=== PATIENT | female | born 1980 | race Two or more races ===

== ENCOUNTER 2019-10-14 03:26 | Inpatient (IN) | payer OTHER ==
[~2019-10-14] VITALS: Ht 154.9 cm; Wt 71.7 kg
[2019-10-14] MEDS ORDERED: RINGERS SOLUTION,LACTATED 1,000 ML IV PRN (04:33)
[2019-10-14] MEDS ORDERED: OXYTOCIN 30 UNITS/LACT RINGERS 500 ML IV ONE (04:33)
[2019-10-14] MEDS ORDERED: CITRIC ACID/SODIUM CITRATE 30 ML SOLUTION UDCUP PO PRN (04:45)
[2019-10-14] MEDS ORDERED: METOCLOPRAMIDE HCL 5 MG/ML 2 ML VIAL IVP PRN (04:45)
[2019-10-14 05:05] LABS: BASOPHILS % (AUTO) 0.8 % (0.0-2.0); EOSINOPHILS % (AUTO) 0.8 % (1.0-6.0); HEMATOCRIT 41.6 % (36-46); HEMOGLOBIN 13.9 g/dL (12.0-16.0); LYMPHOCYTES # (AUTO) 1.6 K/uL (1.0-4.8); LYMPHOCYTES % (AUTO) 21.9 % (22.0-44.0); MEAN CORPUSCULAR HGB CONC 33.4 G/dL (31.0-37.0); MEAN CORPUSCULAR VOLUME 90 fL (80-100); MONOCYTES # (AUTO) 0.4 K/uL (0.1-1.0); MONOCYTES % (AUTO) 4.8 % (2.0-9.0); NEUTROPHILS # (AUTO) 5.4 K/uL (1.8-7.7); NEUTROPHILS % (AUTO) 71.7 % (40.0-70.0); PLATELET COUNT (AUTO)-OB 143 K/uL (150-450); RED BLOOD CELL COUNT(AUTO) 4.63 MIL/uL (4.00-5.20); RED CELL DISTRIBUTION WIDTH 14.1 % (11.5-14.5)
[2019-10-14] MEDS: RINGERS SOLUTION,LACTATED 1,000 ML IV SCH ×2 (05:37→12:40)
[2019-10-14] MEDS: OXYTOCIN 30 UNITS/LACT RINGERS 500 ML IV PRN (05:39)
[2019-10-14 05:55] LABS: PLATELET MORPHOLOGY COMMENT GIANT PLTS PRESENT
[2019-10-14 06:01] VITALS: BP 120/64
[2019-10-14] MEDS ORDERED: PNV11TAB PO (06:06)
[2019-10-14] MEDS ORDERED: OXYGEN THERAPY IH SCH (08:00)
[2019-10-14] MEDS: CLINDAMYCIN 900 MG/D5% WATER 50 ML IV SCH (18:03)
[2019-10-14] MEDS ORDERED: LIDOCAINE/PF 2% 5 ML VIAL ONE (18:34)
[2019-10-14] MEDS ORDERED: ROPIVACAINE HCL/PF 0.2% 100 ML ED ONE (18:34)
[2019-10-14] MEDS ORDERED: ONDANSETRON HCL 4 MG/2 ML VIAL IVP PRN (19:00)
[2019-10-14] MEDS ORDERED: NALBUPHINE HCL 10 MG/ML VIAL IVP PRN (19:00)
[2019-10-14] MEDS ORDERED: DiphenhydrAMINE HCL 50 MG/ML VIAL IVP PRN (19:00)
[2019-10-14] MEDS ORDERED: ROPIVACAINE HCL/PF 0.2% 100 ML ED PRN (19:00)
[2019-10-15] MEDS: CLINDAMYCIN 900 MG/D5% WATER 50 ML IV SCH ×2 (01:54→09:59)
[2019-10-15] MEDS ORDERED: RINGERS SOLUTION,LACTATED 1,000 ML IV ONE (02:10)
[2019-10-15] MEDS: RINGERS SOLUTION,LACTATED 1,000 ML IV SCH ×2 (03:21→11:50)
[2019-10-15] MEDS: OXYTOCIN 30 UNITS/LACT RINGERS 500 ML IV PRN (11:53)
[2019-10-15] MEDS ORDERED: CHLORHEXIDINE GLUCONATE 4% 118 ML TOPICAL LIQUID TP ONE (12:03)
[2019-10-15] MEDS ORDERED: METHYLERGONOVINE MALEATE 0.2 MG/ML VIAL ONE (13:00)
[2019-10-15] MEDS ORDERED: METHYLERGONOVINE MALEATE 0.2 MG/ML VIAL IM PRN (13:18)
[2019-10-15] MEDS ORDERED: OXYTOCIN 30 UNITS/LACT RINGERS 500 ML IV ONE (15:28)
[2019-10-15] MEDS ORDERED: BENZOCAINE 20%/MENTHOL 56 GM SPRAY CANISTER TP PRN (15:30)
[2019-10-15] MEDS ORDERED: LIDOCAINE/PF 1% 30 ML VIAL INJ PRN (15:30)
[2019-10-15] MEDS ORDERED: LANOLIN 7 GM OINTMENT TP PRN (15:30)
[2019-10-15] MEDS ORDERED: GLYCERIN/WITCH HAZEL LEAF 40 PADS JAR TP PRN (15:30)
[2019-10-15] MEDS ORDERED: MAGNESIUM HYDROXIDE SUSPENSION 30 ML UDCUP PO PRN (15:30)
[2019-10-15] MEDS ORDERED: OxyCODONE HCL/ACETAMINOPHEN 5-325 MG TABLET PO PRN ×2 (15:30)
[2019-10-15] MEDS: IBUPROFEN 800 MG TABLET PO PRN ×2 (15:44→21:28)
[2019-10-16 07:42] LABS: BASOPHILS % (AUTO) 0.5 % (0.0-2.0); EOSINOPHILS % (AUTO) 0.6 % (1.0-6.0); HEMOGLOBIN 11.3 g/dL (12.0-16.0); LYMPHOCYTES # (AUTO) 2.1 K/uL (1.0-4.8); LYMPHOCYTES % (AUTO) 16.5 % (22.0-44.0); MEAN CORPUSCULAR HEMOGLOBIN 30.2 pg (26.0-34.0); MEAN CORPUSCULAR HGB CONC 33.2 G/dL (31.0-37.0); MEAN CORPUSCULAR VOLUME 91 fL (80-100); MONOCYTES # (AUTO) 0.7 K/uL (0.1-1.0); MONOCYTES % (AUTO) 5.2 % (2.0-9.0); NEUTROPHILS # (AUTO) 9.7 K/uL (1.8-7.7); NEUTROPHILS % (AUTO) 77.2 % (40.0-70.0); PLATELET COUNT (AUTO)-OB 134 K/uL (150-450); RED BLOOD CELL COUNT(AUTO) 3.74 MIL/uL (4.00-5.20); RED CELL DISTRIBUTION WIDTH 14.7 % (11.5-14.5)
[2019-10-16] MEDS: IBUPROFEN 800 MG TABLET PO PRN (09:06)
[2019-10-16] MEDS ORDERED: IBUP-2071 PO (11:06)
[2019-10-16] MEDS ORDERED: DOCU-275 PO (11:06)
[2019-10-16] MEDS ORDERED: FERR-89 PO (11:06)
== END 2019-10-16 14:15 | disposition home or self-care (01) | DRG 807 ==
LOC: OBSVTOIN 03:26 → 4S 03:26
PROVIDERS: ADMIT Obstetrics & Gynecology Obstetrics; ATTEND Obstetrics & Gynecology Obstetrics
PROC: 0W8NXZZ Division of Female Perineum, External Approach (ICD-10-PCS; principal; 2019-10-15)
PROC: 10D07Z6 Extraction of Products of Conception, Vacuum, Via Natural or Artificial Opening (ICD-10-PCS; 2019-10-15)
PROC: 3E0S3BZ Introduction of Anesthetic Agent into Epidural Space, Percutaneous Approach (ICD-10-PCS; 2019-10-15)
PROC: 00HU33Z Insertion of Infusion Device into Spinal Canal, Percutaneous Approach (ICD-10-PCS; 2019-10-15)
DX: O77.0 Labor and delivery complicated by meconium in amniotic fluid (principal); Z37.0 Single live birth; O76 Abnormality in fetal heart rate and rhythm complicating labor and delivery; Z3A.37 37 weeks gestation of pregnancy
CPT/HCPCS: 86850; 86900; 86901; J2210; J2590; J2795; J3490; J7120